=== PATIENT | female | born 1980 | race American Indian/Alaskan Native ===

== ENCOUNTER 2016-11-02 14:48 | Outpatient (CLI) | payer MEDICAID ==
--- NOTE | 2016-11-02 16:16 | Ultrasound Report ---
LEFT BREAST ULTRASOUND: 11/02/16 14:48:00 CLINICAL: 35-year-old and with a palpable left breast lump and several week history of clear and blood-tinged left nipple discharge. COMPARISON: None. FINDINGS: Ultrasound of the left breast(including all four quadrants and the retroareolar area) was performed. Normal fibroglandular structures are identified at 2:30 o'clock 9 cm from the nipple and correlate with the area of a palpable lump. This area of fibroglandular structures measures approximately 3 x 3.6 x 2.8 cm and stands out from the rest of the breast which is relatively fatty. No mass or shadowing is identified in this area where the patient describes a lump. However, marked retroareolar ductal ectasia is identified. Several ducts are dilated to at least 1 cm diameter in several ducts have thickened burns. A retroareolar heterogeneous solid intraductal mass is identified at 12 o'clock and measures approximately 1.6 x 0.8 x 0.8 cm. Color Doppler demonstrates heterogeneous blood flow within the mass. A second intraductal mass is identified in an adjacent duct and it measures 6 x 8 x 5 mm. A quick survey of the retroareolar ducts of the right breast revealed much smaller right retroareolar ducts and minimal right retroareolar duct ectasia. IMPRESSION: 1. Normal breast tissue at 2:30 o'clock 9 cm from the nipple where the patient feels a lump. 2. Marked left retroareolar duct ectasia with suspicious ductal wall thickening and two suspicious intraductal masses. Recommend vacuum-assisted ultrasound guided needle biopsy of the 2 dominant intraductal masses at 12 o'clock. BI-RADS 4--Suspicious I discussed the findings and the recommendation for left needle core breast biopsy with the patient at the time of the examination. I also suggested that she see a breast surgeon for consultation.
== END 2016-11-02 14:49 | disposition home or self-care (01) ==
LOC: SPVWC 14:48
PROVIDERS: ATTEND Obstetrics & Gynecology
DX: N60.42 Mammary duct ectasia of left breast (principal); N64.52 Nipple discharge; N63 Unspecified lump in breast

== ENCOUNTER 2016-11-14 13:50 | Outpatient (CLI) | payer MEDICAID ==
--- NOTE | 2016-11-14 15:17 | Ultrasound Report ---
VACUUM ASSISTED ULTRASOUND GUIDED NEEDLE CORE BIOPSY WITH CLIP PLACEMENT LEFT BREAST : 11/14/16 13:50:00 CLINICAL: Duct ectasia and intraductal masses. COMPARISON :11/02/16 FINDINGS: The procedure was explained to the patient and informed consent was obtained. Ultrasound demonstrated the previously described extensive duct ectasia with two adjacent intraductal subareolar masses at 12 o'clock. The skin was prepped with Betadine and anesthetized with 1% lidocaine. Vacuum-assisted needle core biopsy was performed through a small dermatotomy using ultrasound guidance, 2% lidocaine with epinephrine for deep anesthesia and a 13-gauge Mammotome Elite biopsy probe. Multiple cores were obtained and placed in formalin. The two masses (described in the prior report to be in adjacent ducts) were sampled on the same pass. A hydro-tu clip was deployed at the site of the larger lesion. Hemostasis was achieved with minimal pressure and a sterile dressing was applied. The patient tolerated the procedure well and there were no apparent complications. A post procedure mammogram was not performed. The patient left the department in good condition with instructions for wound care and follow up. IMPRESSION: Uncomplicated vacuum-assisted ultrasound guided core biopsy and clip placement left breast.
== END 2016-11-14 13:51 | disposition home or self-care (01) ==
LOC: SPVWC 13:50
PROVIDERS: ATTEND Obstetrics & Gynecology
DX: N60.42 Mammary duct ectasia of left breast (principal); N63 Unspecified lump in breast
CPT/HCPCS: 19083; A4648; 88305

== ENCOUNTER 2017-06-19 10:13 | Outpatient (CLI) | payer SELFPAY ==
--- NOTE | 2017-06-20 08:23 | Mammography Report ---
BILATERAL DIGITAL DIAGNOSTIC MAMMOGRAM with CAD: 06/19/17 10:13:00 CLINICAL: Left atypia on vacuum-assisted left breast biopsy 11/14/16. She was at the time and declined surgical excision. COMPARISON:None. This is a baseline mammogram. FINDINGS: The breasts are heterogeneously dense, which may obscure small masses. Extensive regional left upper outer highly suspicious amorphic calcifications. The calcifications span the distance of at least 15 cm. A left retroareolar biopsy clip corresponds to the vacuum-assisted biopsy that was performed for an ultrasound finding.Right asymmetries demonstrates satisfactory placement a spot magnification views. IMPRESSION: Highly suspicious extensive left regional breast calcifications. Recommend left stereotactic breast biopsy.Negative right breast. BI-RADS CATEGORY: 5 - - Highly Suggestive of Malignancy I discussed the findings and the recommendation for needle core biopsy with the patient at the time of the examination. ACR BI-RADS MAMMOGRAPHIC CODES: 0 = Needs additional imaging evaluation; 1 = Negative; 2 = Benign; 3 = Probably benign; 4 = Suspicious; 5 = Malignant; 6 = Known biopsy-proven malignancy COMMENT: 1. Dense breast tissue, i.e., adenosis, fibrocystic changes, etc., may obscure an underlying neoplasm. 2. Approximately 10% of cancers are not detected with mammography. 3. A negative mammography report should not delay biopsy if a clinically suspicious mass is present. COMMENT: Patient follow-up letters are generated by our [employer] application.
== END 2017-06-19 10:14 | disposition home or self-care (01) ==
LOC: SPVWC 10:13
PROVIDERS: ATTEND Surgery
DX: R92.1 Mammographic calcification found on diagnostic imaging of breast (principal)
CPT/HCPCS: 77066

== ENCOUNTER 2017-07-19 08:19 | Outpatient (CLI) | payer MEDICAID, OTHER | END 2017-07-19 08:20 | disposition home or self-care (01) | LOC: LABHHL 08:19 | PROVIDERS: ATTEND Surgery | DX: C77.9 Secondary and unspecified malignant neoplasm of lymph node, unspecified (principal) | CPT/HCPCS: 88305; 88341; 88342; 88361 ==

== ENCOUNTER 2017-08-09 08:31 | Outpatient (CLI) | payer MEDICAID ==
--- NOTE | 2017-08-09 10:55 | Mammography Report ---
LEFT DIGITAL DIAGNOSTIC MAMMOGRAM: 08/09/17 08:31:00 CLINICAL: For clip placement immediately status post stereotactic biopsy. 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 She also had an ultrasound vacuum assisted biopsy 11/14/16 with pathologic diagnosis of intraductal papilloma. COMPARISON:06/28/17 FINDINGS: A new retroareolar biopsy clip correlates with today's stereotactic biopsy and the clip is distant from the first stereotactic biopsy clip by 8 cm on the CC view and approximately 6 cm on the ML view.The most anterior retroareolar biopsy clip correlates with the ultrasound biopsy done on 11/14/16. IMPRESSION: Concordant clip placement status post stereotactic biopsy. BI-RADS CATEGORY: 6--Known cancer
--- NOTE | 2017-08-09 10:58 | Mammography Report ---
STEREOTACTIC VACUUM ASSISTED BIOPSY WITH CLIP PLACEMENT LEFT BREAST: 08/09/17 08:31:00 CLINICAL: Known DCIS of the left breast confirmed by stereotactic biopsy done on 06/28/17. This procedure is being done to confirm extent of disease. COMPARISON:06/28/17 mammogram FINDINGS: Consent for the procedure was obtained. A more anterior group of calcifications targeted with stereotactic guidance. The skin was prepped with Betadine and anesthetized with 1% lidocaine. 2% lidocaine with epinephrine was injected for deeper anesthesia. 8 gauge Mammotome biopsy was performed from a lateral approach through a small dermatotomy. Prefire and post-fire images demonstrated satisfactory positioning of the probe. Samples were obtained around the clock face. 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 A localizer clip was placed at the biopsy site and the placement was confirmed with a radiograph. The probe was removed and hemostasis was achieved with mild pressure. A sterile dressing was applied. The patient tolerated the procedure well and there were no apparent complications. Two view mammogram demonstrated concordant position of the biopsy clip.The second biopsy clip is 8 cm distant from the first stereotactic biopsy clip on the CC view and 6 cm distant from the first stereotactic biopsy clip on the ML view. IMPRESSION: Uncomplicated stereotactic biopsy with clip placement left breast.
== END 2017-08-09 08:32 | disposition home or self-care (01) ==
LOC: SPVWC 08:31
PROVIDERS: ATTEND Surgery
DX: D05.12 Intraductal carcinoma in situ of left breast (principal); R92.0 Mammographic microcalcification found on diagnostic imaging of breast
CPT/HCPCS: 19081; 77065; 88305; 88342; 88361; A4648

== ENCOUNTER 2017-08-10 13:14 | Outpatient (CLI) | payer MEDICAID ==
--- NOTE | 2017-08-10 15:08 | Ultrasound Report ---
ULTRASOUND GUIDED NEEDLE CORE BIOPSY OF A RIGHT AXILLARY LYMPH NODE WITH CLIP PLACEMENT : 08/10/17 13:14:00 CLINICAL: Left breast cancer and a suspicious right axillary lymph node. COMPARISON :None. FINDINGS: The procedure was explained to the patient and informed consent was obtained. Ultrasound demonstrated a single suspicious lymph node measuring 3.1 cm in length with a 5 mm thick cortex. The skin in the axilla was prepped with Betadine and anesthetized with 1% lidocaine. Ultrasound guided needle core biopsy of the lymph node was performed through a small dermatotomy using 2% lidocaine with epinephrine for deep anesthesia and a 18-gauge Achieve biopsy device. 3 samples were obtained and placed in formalin. A clip was deployed within the lymph node. Hemostasis was achieved with minimal pressure and a sterile dressing was applied. The patient tolerated the procedure well and there were no apparent complications. She was discharged in good condition and was given instructions for wound care and followup. IMPRESSION: Uncomplicated ultrasound-guided needle core biopsy of a right axillary lymph node with clip placement.
== END 2017-08-10 13:15 | disposition home or self-care (01) ==
LOC: SPVWC 13:14
PROVIDERS: ATTEND Surgery
DX: R59.1 Generalized enlarged lymph nodes (principal); C50.911 Malignant neoplasm of unspecified site of right female breast; Z79.899 Other long term (current) drug therapy
CPT/HCPCS: 38505; 88305; 88342

== ENCOUNTER 2017-08-16 10:09 | Day surgery (SDC) | payer MEDICAID ==
[2017-08-16] MEDS ORDERED: NACL BACTERIOSTATIC INFILTRATI ONE (11:50)
[2017-08-16] MEDS ORDERED: DEMEROL IV PRN (12:47)
[2017-08-16] MEDS ORDERED: ZOFRAN IV PRN (12:47)
[2017-08-16] MEDS ORDERED: DILAUDID IV PRN (12:47)
[2017-08-16] MEDS ORDERED: TORADOL IV PRN (12:47)
--- NOTE | 2017-08-16 12:47 | Anesthesia Consultation ---
Anesthesia Consult and Med Hx Date of service: 08/16/17 - Airway Anesthetic Teeth Evaluation: Good ROM Head & Neck: Adequate Mental/Hyoid Distance: Adequate Mallampati Class: Class I Intubation Access Assessment: Good - Pulmonary Exam CTA: Yes - Cardiac Exam Cardiac Exam: RRR - Pre-Operative Health Status ASA Pre-Surgery Classification: ASA3 Proposed Anesthetic Plan: General (GA with LMA ok, pt is morbidly obese ASA 3) - Central Nervous System Hx Psychiatric Problems: No - Hematic Hx Anemia: Yes Hx Sickle Cell Disease: Yes (trait) - Other Systems Hx Alcohol Use: Yes Hx Substance Use: No Hx Cancer: Yes
--- NOTE | 2017-08-16 12:47 | Anesthesia Day of Surgery ---
Anesthesia Day of Surgery - Day of Surgery Patient Examined: Yes Patient H&P Reviewed: Yes Patient is NPO: Yes
[2017-08-16] MEDS ORDERED: LACTATED RINGERS 1,000 ML IV SCH ×2 (13:00)
[2017-08-16] MEDS ORDERED: ANCEF/STERILE WATER 2 GM/20 ML IV NR (13:00)
[2017-08-16] MEDS ORDERED: VERSED IV NR (13:00)
[2017-08-16] MEDS ORDERED: DIPRIVAN 10 MG/ML IV ONE (16:27)
[2017-08-16] MEDS ORDERED: XYLOCAINE MPF 2% ONE (16:27)
[2017-08-16] MEDS ORDERED: DECADRON ONE (16:42)
[2017-08-16] MEDS ORDERED: ZOFRAN ONE (16:42)
[2017-08-16] MEDS ORDERED: HEPARIN 10,000 UNITS/10 ML ONE (16:44)
[2017-08-16] MEDS ORDERED: XYLOCAINE 1% 20 mL ONE (16:44)
[2017-08-16] MEDS ORDERED: MARCAINE 0.5% 30 ML INFILTRATI ONE (16:44)
[2017-08-16] MEDS ORDERED: NACL 0.9% 100 ML ONE (16:45)
[2017-08-16] MEDS ORDERED: NACL 0.9% 50 ML ONE (16:45)
[2017-08-16] MEDS ORDERED: DILAUDID ONE (16:46)
[2017-08-16] MEDS ORDERED: NACL 0.9% IV ONE (16:49)
[2017-08-16] MEDS ORDERED: XYLOCAINE 1% 20 mL INFILTRATI ONE (16:49)
[2017-08-16] MEDS ORDERED: MARCAINE 0.25% INFILTRATI ONE (16:49)
[2017-08-16] MEDS ORDERED: HEPARIN 10,000 UNITS/10 ML IV ONE (16:49)
[2017-08-16] MEDS ORDERED: NACL 0.9% 1000 ML 1,000 ML ONE (17:15)
--- NOTE | 2017-08-16 17:53 | Short Stay Summary ---
Short Stay Documentation Date of service: 08/16/17 - History Principal diagnosis: Left breast cancer H&P: obtained from office - Allergies and Medications Current Medications: Allergies No Known Allergies Allergy (Verified 08/14/17 11:41) Home Medications Medication Instructions Recorded Confirmed Last Taken Type Ascorbic Acid [Vitamin C] 500 mg PO DAILY 08/16/17 08/16/17 08/15/17 History Active Medications Hydromorphone HCl (Dilaudid) 0.5 mg IV Q10MIN PRN PRN Reason: Pain , Severe (7-10) Stop: 08/17/17 23:00 Lactated Ringer's (Lactated Ringers) 1,000 mls @ 100 mls/hr IV DIRECT SILVIA Ketorolac Tromethamine (Toradol) 30 mg IV ONCE PRN PRN Reason: Pain, Moderate (4-6) Meperidine HCl (Demerol) 25 mg IV ONCE PRN PRN Reason: Shivering Midazolam HCl (Versed) 2 mg IV PREOP NR Stop: 08/16/17 23:59 Last Admin: 08/16/17 12:41 Dose: 2 mg Ondansetron HCl (Zofran) 4 mg IV ONCE PRN PRN Reason: Nausea And Vomiting - Brief post op/procedure progress note Date of procedure: 08/16/17 Pre-op diagnosis: left breast cancer Post-op diagnosis: same Procedure: placement of right subclavian port a cath with ultrasound guidance Anesthesia: GETA, local Findings: good placement of port on post op CXR, no PTX Surgeon: IVET NICHOLAS Estimated blood loss: minimal Pathology: none Specimen disposition: to lab Condition: stable - Hospital course Hospital course: The patient was observed in the PACU and discharged to home in stable condition when criteria was met Short Stay Discharge Plan Activity: other (avoid heavy lifting with right arm) Diet: regular Wound: open to air, other (may shower tomorrow, pat incisions dry, do not scrub. Do not submerge incisions in hottubs/pools/baths until healed) Additional Instructions: Please call surgeon's office if you notice any swelling, redness, or drainage from the incision. Please follow up with Dr. Gu when scheduled. Call Dr. Nicholas' s office for a follow up appointment in 2 weeks if you do not have follow up scheduled with Dr. Rowell or Andrea in the next 2 weeks. Follow up with: VONNIE KEANE MD [Primary Care Provider] - 7 Days IVET NICHOLAS DO [Staff Physician] - 7 Days Prescriptions: Ibuprofen [Motrin 800 MG tab] 800 mg PO Q8HR PRN #30 tablet PRN Reason: Pain, Moderate (4-6)
--- NOTE | 2017-08-16 18:11 | Fluoroscopy Report ---
FINAL REPORT PROCEDURE: [place] CENTRAL VENOUS DEV PLCT TECHNIQUE: A portable AP chest radiograph was obtained at 08/16/2017 21:32 (GMT) . CPT 84108 HISTORY: Breast cancer. Insertion [id number]. COMPARISON: No prior studies are available for comparison. FINDINGS: Heart: The heart size is top normal. Mediastinum/Vessels: Normal. Lungs/Pleural space: Normal. Bony thorax: No acute osseous abnormality. Life support devices: Tip of Port-A-Cath at the cavoatrial junction/proximal right atrium. IMPRESSION: Tip of Port-A-Cath at the cavoatrial junction/proximal right atrium. No pneumothorax on limited portable exam. Heart size top-normal.
--- NOTE | 2017-08-16 20:53 | Post Anesthesia Evaluation ---
- Post Anesthesia Evaluation Patient Participated: Yes Airway Patent: Yes Stable Respiratory Function: Yes Nausea/Vomiting: No Temp > 96.8F: Yes Pain Manageable: Yes Adequeate Hydration: Yes Anesthesia Complications: No Block Receding Appropriately: Not Applicable Patient on Ventilator: No
[2017-08-16 23:08] VITALS: BP 113/67
--- NOTE | 2017-08-17 15:52 | Operative Report ---
Operative Report Operative Report: Date of procedure: 08/16/17 Pre-op diagnosis: left breast cancer Post-op diagnosis: same Procedure: placement of right subclavian port a cath with ultrasound guidance, fluoroscopy. Anesthesia: GETA, local Findings: good placement of port on post op CXR, no PTX Surgeon: IVET NICHOLAS Estimated blood loss: minimal Pathology: none Specimen disposition: to lab Condition: stable HPI and indication: 36 yo F with L metastatic ductal carcinoma who is followed by Dr. Rowell (breast surgery) and Dr. Mendez (oncology) as outpatient. The patient is a candidate for chemotherapy and was referred for port placement. She was consented for port placement using ultrasound guidance. All risks, benefits, and alternatives to surgery were discussed with her prior to consent and she understood. Procedure in detail: Procedure in detail: The patient was identified in the preoperative area, taken back to operating room, placed on operating table in supine position. After anesthesia was induced both arms were tucked and upper chest and neck were prepped and draped in usual sterile fashion. A timeout was performed. The was placed in Trendelenburg position. Local anesthetic was infiltrated into the skin at the intended puncture site. The right subclavian vein was visualized on ultrasound, and seen as compressible. This was accessed on the first stick. There was return of dark red, nonpulsatile blood. The wire was threaded under fluoroscopy without resistance and positioning confirmed. The needle was then removed. Using a 15 blade, an incision was made in the right upper chest and dissection carried down through the skin and subcutaneous tissue using Bovie electrocautery. Hemostasis was achieved along the way. A pocket for the port was then created bluntly and with electrocautery. The catheter was flushed and tunneled from the pocket to the wire. A breakaway catheter/dilator sheath then inserted over the wire under fluoroscopy, and the wire and dilator removed. The catheter was then inserted through the breakaway catheter which was then removed. The catheter sat flush under the skin. Using continuous fluoroscopy, the catheter was pulled back until the tip was visualized in the right atrium. The catheter was then cut to size and the port attached in the usual fashion. The port was then sutured into place to the pre-pectoral fascia using 2-0 Vicryl interrupted sutures. The wound was irrigated and hemostasis ensured. The port was tested with heparinized saline and there was return of blood and it flushed easily. The port was then instilled with 3000 units of heparin. The wound was again irrigated, and hemostasis ensured. The deep dermal layer was then closed with interrupted 3-0 Vicryl stitches. The skin incisions were closed with 4-0 Monocryl subcuticular stitches and skin glue. Intraoperative chest x-ray did show good positioning of the port, without evidence of pneumothorax. At the end of the case, all sponge, instrument, sharp counts were correct 2. The patient was awoken from anesthesia and taken to PACU in stable condition.
== END 2017-08-16 18:50 | disposition home or self-care (01) ==
LOC: OR 10:09
PROVIDERS: ATTEND Surgery
DX: C50.412 Malignant neoplasm of upper-outer quadrant of left female breast (principal); D57.3 Sickle-cell trait; Z98.890 Other specified postprocedural states
CPT/HCPCS: 36561; 76937; 77001; 81025; C1788; J0690; J1100; J1170; J1644; J2250; J2405; J2704; J7030; J7120

== ENCOUNTER 2017-08-17 13:37 | Outpatient (CLI) | payer MEDICAID ==
--- NOTE | 2017-08-19 10:57 | PET Report ---
PET SB TO MT INITIAL: HISTORY: Initial staging of left breast cancer. TECHNIQUE: 12.4 millicuries F-18 FDG was administered intravenously. Noncontrast CT images and PET images were obtained from the skull base to the proximal thighs. Fused images were reviewed on a workstation. The patient's blood glucose level measured 92. COMPARISON: No previous PET/CT. Correlation is made with the diagnostic mammogram performed 08/09/17. FINDINGS: BRAIN: physiologic FDG uptake in the imaged brain. NECK: physiologic FDG uptake. CHEST WALL: There is an approximate 4.4 x 2.3 cm masslike lesion in the lateral left breast with Max SUV measuring 3.2. This correlates with the left breast lesion when comparing to diagnostic mammogram. There is a second biopsy clip in the central portions of the left breast but no hypermetabolic mass is identified in this region. Max SUV in this area measures 2.1. There is normal uptake in the right breast. MEDIASTINUM: physiologic FDG uptake. LUNGS: physiologic FDG uptake. PLEURA/PERICARDIUM: physiologic FDG uptake. THORACIC LYMPH NODES: There are 2 mildly enlarged hypermetabolic lymph nodes in the left axilla measuring 2.3 cm and 1.8 cm in long axis. Max SUV of these 2 lymph nodes measures 6.7. HEPATOBILIARY: physiologic FDG uptake. Mean liver SUV measures . PANCREAS: physiologic FDG uptake. SPLEEN: physiologic FDG uptake. ADRENAL GLANDS: physiologic FDG uptake. KIDNEYS/RENAL COLLECTING SYSTEMS: physiologic FDG uptake. BOWEL/MESENTERY: physiologic FDG uptake. PELVIC VISCERA: physiologic FDG uptake. ABDOMINAL/PELVIC LYMPH NODES: physiologic FDG uptake. MUSCULOSKELETAL: physiologic FDG uptake. IMPRESSION: Left breast mass consistent with primary breast cancer and 2 mildly enlarged and hypermetabolic left axillary lymph nodes are identified consistent with metastatic disease. No evidence for pulmonary, hepatic or bony metastasis.
== END 2017-08-17 13:38 | disposition home or self-care (01) ==
LOC: PET 13:37
PROVIDERS: ATTEND Internal Medicine Hematology
DX: C50.919 Malignant neoplasm of unspecified site of unspecified female breast (principal)
CPT/HCPCS: 78815; 82962; A9552

== ENCOUNTER 2017-11-09 09:20 | Outpatient (CLI) | payer MEDICAID ==
--- NOTE | 2017-11-09 13:10 | PET Report ---
PET/CT:11/09/17 09:20:00 CLINICAL: Breast cancer restaging. RADIOPHARMACEUTICAL: 15.738mCi F18-FDG. COMPARISON: 08/17/17 PET/CT TECHNIQUE- Following intravenous injection of F-18 FDG and an approximately 60 minute uptake period, CT and PET images from the mid skull to the upper thighs were acquired with the patient in the fasted state. No contrast was administered. The CT protocol used for this PET CT study is designed for attenuation correction and anatomic localization of PET abnormalities. This drapery estimator CT is not desired to produce and cannot replace, [id number] diagnostic CT scans with specific imaging protocols for different body parts and indications. Plasma glucose at the time of this test: 112g/dl. The standardized uptake values (SUV) are normalized to patient body weight and indicate the highest activity concentration (SUV max) in a given disease site. FINDINGS: Brain--Physiologic FDG uptake in the visualized regions of the brain. Neck--Physiologic FDG uptake in mucosal structures. No mass or lymphadenopathy. Chest--Physiologic FDG uptake in mediastinal blood pool and myocardium. The previously described left breast mass and abnormal FDG uptake has resolved. Lungs--No abnormal uptake. No pulmonary nodule or mass. Pleura/pericardium--No abnormal uptake. Thoracic nodes--No abnormal uptake. The previously described FDG avid left axillary lymphadenopathy has resolved. A few small non-FDG avid left axillary lymph nodes. Hepatobiliary--No abnormal uptake. Liver background SUV mean, as a reference for comparing FDG studies, is 4.7 compared to 4.7 on the last exam. No liver mass. Spleen--No abnormal uptake. Pancreas--No abnormal uptake. Adrenal Glands--No abnormal uptake. Kidneys/Ureters/Bladder--No abnormal uptake. Abdominopelvic Nodes--No abnormal uptake. Bowel/Peritoneum/Mesentery--No abnormal uptake. Pelvic organs--No abnormal uptake. Bones/Soft Tissues--No abnormal uptake and no suspicious bone lesions. IMPRESSION-1. A positive response to therapy with resolution of the FDG avid left breast mass and FDG avid left axillary lymphadenopathy. 2. No evidence of pulmonary, hepatic, conrad or skeletal metastasis.
== END 2017-11-09 09:21 | disposition home or self-care (01) ==
LOC: PET 09:20
PROVIDERS: ATTEND Surgery
DX: C50.412 Malignant neoplasm of upper-outer quadrant of left female breast (principal); C50.812 Malignant neoplasm of overlapping sites of left female breast
CPT/HCPCS: 78815; 82962; A9552

== ENCOUNTER 2017-11-17 09:34 | Outpatient (CLI) | payer MEDICAID ==
--- NOTE | 2017-11-17 11:26 | Mammography Report ---
Left mammogram: Known cancer being treated with prior radiation and current chemotherapy. Recent negative PET scan. Patient has extensive microcalcifications involving the upper outer portion of left breast. There are 2 biopsy markers. There is no identifiable mass. A questionable nodular area identified in the lateral portion of the breast in the CC projection on prior examination on August 09, 2017 is no more identified but the remainder the breast pattern is generally unchanged. CAD used. Impression: Generally stable exam with resolution of a possible lateral nodule. Recommendation: Followup per your protocol. BI-RADS 6.
== END 2017-11-17 09:35 | disposition home or self-care (01) ==
LOC: SPVWC 09:34
PROVIDERS: ATTEND Surgery
DX: C50.412 Malignant neoplasm of upper-outer quadrant of left female breast (principal); C50.812 Malignant neoplasm of overlapping sites of left female breast

== ENCOUNTER 2017-12-13 08:10 | Observation (INO) | payer MEDICAID ==
--- NOTE | 2017-12-12 13:49 | Anesthesia Consultation ---
Anesthesia Consult and Med Hx Date of service: 12/12/17 - Airway Anesthetic Teeth Evaluation: Good ROM Head & Neck: Adequate Mental/Hyoid Distance: Adequate Mallampati Class: Class I Intubation Access Assessment: Probably Good - Pulmonary Exam CTA: Yes - Cardiac Exam Cardiac Exam: RRR - Pre-Operative Health Status ASA Pre-Surgery Classification: ASA2 Proposed Anesthetic Plan: General Nerve Block: PEC - Pulmonary Hx Smoking: No Hx Asthma: No Hx Respiratory Symptoms: No SOB: No COPD: No - Cardiovascular System Hx Hypertension: No Hx Heart Attack/AMI: No Hx Cardia Arrhythmia: No Hx Valvular Heart Disease: Yes (mild TR on 07/2017 TTE) - Central Nervous System Hx Seizures: No CVA: No - Gastrointestinal Hx Gastroesophageal Reflux Disease: No - Endocrine Hx Renal Disease: No Hx Liver Disease: No Hx Insulin Dependent Diabetes: No Hx Thyroid Disease: No - Hematic Hx Anemia: Yes (Hb 10; blood consent signed.) Hx Sickle Cell Disease: No (sickle cell trait only) - Other Systems Hx Cancer: Yes (breast) Hx Obesity: Yes - Additional Comments Anesthesia Medical History Comments: Had pre-chemo TTE in 07/2017 with EF 50-55% , mild TR. No hx anesthetic complications.
[~2017-12-13 08:10] MED LIST: LACTATED RINGERS 1,000 ML IV SCH; NEURONTIN PO NR; SUBLIMAZE IV SCH; VERSED IV NR
[2017-12-13] MEDS ORDERED: DECADRON ONE ×3 (09:16→16:44)
[2017-12-13] MEDS ORDERED: MARCAINE 0.25% INFILTRATI ONE (09:16)
[2017-12-13] MEDS ORDERED: METHYLENE BLUE ONE ×2 (10:02→13:30)
--- NOTE | 2017-12-13 10:08 | Anesthesia Day of Surgery ---
Anesthesia Day of Surgery - Day of Surgery Patient Examined: Yes Patient H&P Reviewed: Yes Patient is NPO: Yes
[2017-12-13] MEDS ORDERED: DIPRIVAN 10 MG/ML IV ONE (10:25)
[2017-12-13] MEDS ORDERED: SUBLIMAZE ONE (10:25)
[2017-12-13] MEDS ORDERED: XYLOCAINE MPF 2% ONE (10:27)
[2017-12-13] MEDS ORDERED: ZEMURON IV ONE ×2 (10:27→13:09)
[2017-12-13] MEDS ORDERED: DILAUDID IV PRN (10:30)
[2017-12-13] MEDS ORDERED: ANCEF/STERILE WATER 2 GM/20 ML IV NR (11:00)
[2017-12-13] MEDS ORDERED: NACL ONE (11:13)
[2017-12-13] MEDS ORDERED: BACITRACIN ONE (11:38)
[2017-12-13] MEDS ORDERED: GARAMYCIN ONE (11:38)
[2017-12-13] MEDS ORDERED: METHYLENE BLUE IV ONE (12:45)
[2017-12-13] MEDS ORDERED: METHYLENE BLUE IRRIGATION ONE (12:45)
[2017-12-13] MEDS ORDERED: NACL IRRIGATION ONE (12:45)
[2017-12-13] MEDS ORDERED: NACL 0.9% IR ONE (12:45)
[2017-12-13] MEDS ORDERED: GARAMYCIN IV ONE (12:45)
[2017-12-13] MEDS ORDERED: ANCEF IV ONE (12:45)
[2017-12-13] MEDS ORDERED: WATER FOR IRRIG STERILE IR ONE (12:45)
[2017-12-13] MEDS ORDERED: BACITRACIN IR ONE (12:45)
[2017-12-13] MEDS ORDERED: NACL 0.9% 1000 ML 1,000 ML ONE (13:30)
--- NOTE | 2017-12-13 16:24 | Mammography Report ---
SPECIMEN RADIOGRAPH LEFT BREAST: 12/13/17 08:10:00 CLINICAL: Total mastectomy specimen. FINDINGS: Three biopsy clips are identified within the specimen. Extensive malignant calcifications span approximately 14 cm in the lateral aspect of the breast.
[2017-12-13] MEDS ORDERED: BLOXIVERZ ONE (16:44)
[2017-12-13] MEDS ORDERED: ZOFRAN ONE (16:44)
[2017-12-13] MEDS ORDERED: ROBINUL ONE (16:44)
[2017-12-13] MEDS ORDERED: TORADOL ONE (16:44)
[2017-12-13] MEDS ORDERED: TYLENOL PO PRN (17:20)
[2017-12-13] MEDS ORDERED: SODIUM CHLORIDE FLUSH SYRINGE 10 ML IV PRN (17:20)
[2017-12-13] MEDS ORDERED: BENADRYL PO PRN (17:20)
[2017-12-13] MEDS ORDERED: ZOFRAN IV PRN (17:20)
--- NOTE | 2017-12-13 17:20 | Short Stay Summary ---
Short Stay Documentation Date of service: 12/13/17 - History H&P: obtained from office - Allergies and Medications Current Medications: Allergies No Known Allergies Allergy (Verified 12/06/17 17:17) Home Medications Medication Instructions Recorded Confirmed Last Taken Type HYDROcodone/APAP 5-325 [[place] 1 each PO Q6HR PRN #30 tablet 12/13/17 Unknown Rx 5/325] Active Medications Cefazolin Sodium (Ancef/Sterile Water 2 Gm/20 Ml) 2 gm IV PREOP NR Stop: 12/13/17 21:00 Celecoxib (Celebrex) 200 mg PO PREOP NR Stop: 12/13/17 23:59 Last Admin: 12/13/17 09:17 Dose: 200 mg Fentanyl (Sublimaze) 100 mcg IV ONCE SILVIA Stop: 12/13/17 23:48 Gabapentin (Neurontin) 300 mg PO PREOP NR Stop: 12/13/17 23:59 Last Admin: 12/13/17 09:16 Dose: 300 mg Lactated Ringer's (Lactated Ringers) 1,000 mls @ 100 mls/hr IV DIRECT SILVIA Last Admin: 12/13/17 09:16 Dose: 100 mls/hr Midazolam HCl (Versed) 2 mg IV PREOP NR Stop: 12/13/17 23:00 Last Admin: 12/13/17 09:18 Dose: 2 mg - Brief post op/procedure progress note Date of procedure: 12/13/17 Pre-op diagnosis: Left breast cancer of the upper outer quadrant Post-op diagnosis: same Procedure: Right total mastectomy, left total mastectomy with SLNB followed by ALND Anesthesia: GETA Findings: Left SLNB positive for malignancy and proceeded with ALND; radiograph specimen of both clips present Surgeon: KAREN HAYS Estimated blood loss: minimal Pathology: list (bilateral mastectomy; left SLNB, left ALND) Specimen disposition: to lab Condition: stable - Disposition Condition at discharge: Good Disposition: DC/TX-02 SHRT-TRM GEN HOSP IP Short Stay Discharge Plan Activity: other (no heavy lifting) Diet: regular Wound: other (keep incisions clean and dry; no showering or baths) Follow up with: VONNIE KEANE MD [Primary Care Provider] - 7 Days KAREN HAYS MD [Staff Physician] - 7 Days Prescriptions: HYDROcodone/APAP 5-325 [[place] 5/325] 1 each PO Q6HR PRN #30 tablet PRN Reason: Pain
--- NOTE | 2017-12-13 17:26 | Operative Report ---
Operative Report Operative Report: Date of Service: December 13, 2017 Preoperative diagnosis: Left breast cancer of the upper outer quadrant Postoperative diagnosis: Same Procedure: Left total mastectomy with sentinel lymph node biopsy followed by ALND and right total mastectomy Surgeon: Lakshmi Rowell M.D. Anesthesia: Gen. Findings: Left breast clips present within left total mastectomy. 1 sentinel lymph node identified and positive for malignancy on frozen section of pathology and proceeded with left axillary lymph node dissection Complications: None Drains: per plastic surgery Estimated blood loss: Minimal Disposition: PACU in good condition Indications for operative procedure: This is a 37-year-old lady with stage II left breast cancer of the upper outer quadrant, [id number] ER/UT positive. She completed neoadjuvant chemotherapy and recommendations were to proceed with left mastectomy given extensive microcalicifications with SLN staging. Patient underwent two left breast biopsies with findings only of DCIS and positive left axillary lymph node. She wised to proceed with a prophylactic right mastectomy and immediate bilateral tissue roll grinder placement. Genetic testing with on significant gene mutation. She wished to proceed with the above procedure. Procedure in detail: Anesthesia placed bilateral pectoral muscle block prior to going to the operating room. The patient was taken to the operating room and was placed supine. Gen. anesthesia was administered. The left nipple was injected with radioisotope and 1 cc of methylene blue. Bilateral chest and axillas were prepped and draped in the normal sterile operative fashion. Timeout was performed. Typical mastectomy incision markings were made. Attention was taken toward the right breast first. First began raising of the superior flap to the level of the clavicle superiorly and posteriorly to the pectoralis muscle. Followed by raising of the medial flap to the level of the sternum and posteriorly to the pectoralis muscle. Followed by raising of the lateral flap to the level of the latissimus dorsi muscle and taken down posteriorly. Followed by raising of the inferior flap to the level of the inframammary fold taken posterior to the pectoralis muscle. The mastectomy/ breast was removed from the pectoralis muscle without incident. The specimen was appropriately marked and sent to pathology. Hemostasis was obtained and plastic surgery then proceeded with tissue roll grinder placement. Attention was taken towards the left breast. A gamma probe was inserted into the axilla to identify the sentinel lymph node location with no uptake noted. A skin incision was made with a 10 blade knife and dissection taken down to the subcutaneous tissues. First began raising of the superior flap to the level of the clavicle superiorly and posteriorly to the pectoralis muscle. Followed by raising of the medial flap to the level of the sternum and posteriorly to the pectoralis muscle. Followed by raising of the lateral flap to the level of the latissimus dorsi muscle and taken down posteriorly. The gamma probe was inserted into the axilla, the axillary fascia was opened and sentinel lymph node was identified with the gamma probe that was dissected free and sent to pathology, SLN was previous biopsied axillary lymph node with malginancy. All remaining counts were less than 10% of the highest SLN. Lymph node was sent to pathology with findings positive for malignancy noted on frozen section. Then proceeded with raising of the inferior flap to the level of the inframammary fold taken posterior to the pectoralis muscle. The mastectomy/breast was removed from the pectoralis muscle without incident. The specimen was appropriately marked and sent to radiology with findings of breast clips present and sent to pathology. Attention was then taken towards the left axilla. First began opening of the axillary fascia further. The lattismus dorsi muscle was identified and followed superiorly. Then proceeded with identification of the axillary vein followed by identification of the thoracodorsal bundle and long thoracic nerve. Axillary lymph nodes were then removed from the above boundaries with the aid of the bovie cautery and sweeping-like motion and then sent to pathology. Axillary lymph nodes from level I and II were removed. Both nerves were identified and unharmed. Fibrotic and adherent tissue was noted around the long thoracic nerve and the tissue was not dissected free around the nerve given concerns of nerve injury, no bulky lymph nodes were noted to palpation of that tissue. One abnormal lymph node to palpation was noted that was properly removed during the dissection. Patient will receive adjuvant XRT. Hemostasis was noted. The chest wall was irrigated and suctioned. Hemostasis was obtained and plastic surgery then proceeded with tissue roll grinder placement. She tolerated surgery very well.
--- NOTE | 2017-12-13 17:47 | Post Operative Note ---
Pre-op diagnosis: left breast cancer Post-op diagnosis: same Findings: bilateral breast mastectomy defects Procedure: bilateral recon with expanders and mesh Anesthesia: GETA Surgeon: SILVESTRE MALAVE Estimated blood loss: 50-100ml Pathology: none Condition: stable Disposition: PACU
[2017-12-13] MEDS ORDERED: LACTATED RINGERS 1,000 ML IV SCH (18:00)
[2017-12-13] MEDS: DILAUDID IV PRN ×2 (18:13→18:33)
[2017-12-13] MEDS ORDERED: DILAUDID ONE ×2 (18:14→18:33)
--- NOTE | 2017-12-13 19:28 | XRay Report ---
FINAL REPORT EXAM: XR ELBOW 3+V RT HISTORY: painful lt elbow after Mastectomy TECHNIQUE: 3 views left elbow PRIORS: None. FINDINGS: No fracture identified. No dislocation seen. No evidence of joint effusion. Joint spaces are within normal limits. IMPRESSION: Negative elbow series
--- NOTE | 2017-12-13 21:09 | Post Anesthesia Evaluation ---
- Post Anesthesia Evaluation Patient Participated: Yes Airway Patent: Yes Stable Respiratory Function: Yes Nausea/Vomiting: No Temp > 96.8F: Yes Pain Manageable: Yes Adequeate Hydration: Yes Anesthesia Complications: No Other Comments: While in PACU, patient complained of pain in the right antecubital region with difficultly flexing the arm. Sensation intact; no swelling, skin changes, or obvious deformity of the arm noted. Intraop anesthesia and OR staff report that the right arm had moved off the arm board during the procedure but that this was recognized quickly and arm was resecured. Xray revealed no body injury or dislocation. After approx 1 hr in PACU, patient was able to flex/extend at the elbow and pain was improved. Surgical site pain well controlled with pre-op nerve block.
[2017-12-13] MEDS: COLACE PO SCH (22:05)
[2017-12-13] MEDS: MORPHINE IV PRN (22:08)
[2017-12-14] MEDS: REGLAN PO PRN ×2 (00:07→06:04)
--- NOTE | 2017-12-14 00:28 | Operative Report ---
PREOPERATIVE DIAGNOSIS: Left breast cancer. POSTOPERATIVE DIAGNOSIS: Left breast cancer. PROCEDURE: 1. Bilateral breast reconstruction using tissue cemetery vault installer in the prepectoral fashion, CPT CODE 69416-57. 2. Bilateral breast reconstruction using biological mesh, FlexHD CPT code 98450-66. 3. Bilateral breast reconstruction using adjacent tissue transfer. Total area of 300 square centimeters, CPT code 98756, 03880 x 8. 4. Application of DEBBI negative pressure wound VAC device to bilateral breasts for postoperative wound healing 95193-56. SURGEON: Johnny Maldonado MD NATIONAL ACCOUNT EXECUTIVE: None. ANESTHESIA: General. OPERATIVE INDICATIONS: This is a 37-year-old female with a history of left-sided breast cancer, was referred to me by Dr. Rowell for breast reconstruction. The patient was planning on undergoing bilateral mastectomies and discussion was held with the patient about multiple different options of immediate versus delayed and autologous versus implant based reconstruction. We decided implant based reconstruction as our initial plan with the ability to change that plan moving forward once we had obtained her final pathology and decision making on adjuvant therapies. Plan was for tissue cemetery vault installer reconstruction at this time. Risks and benefits of surgery were discussed with the patient. She agreed. OPERATIVE DETAILS: After informed consent was obtained, the patient was brought to the operating room and placed on the operating room table. Preoperative antibiotics and general anesthesia were administered. The patient was prepped and draped in a usual sterile fashion. Timeout was called verifying inpatient operation being performed and the site of the operation. Dr. Rowell began the case and her mastectomies will be dictated separately. I had marked the patient now actually for a Martin pattern mastectomy due to the fact that she had large breasts with significant amount of ptosis. This would provide for better concealment of her scar, better contouring of the breast and chest wall and also ability to potentially use some of her own autologous tissue coverage over the implant. I marked this out. Dr. Rowell performed mastectomy initially, first on the right side and then the left side. I came in and assessed the defects and began my work on the back table. After measuring, her base width, which was approximately 15 cm, I created a prepectoral composite implant on the back table for both sides. We did this by taking a tissue cemetery vault installer and wrapping it with a piece of acellular dermal matrix. This was done using a [place] [employer] cemetery vault installer and FlexHD. On the right side using [place] [employer] high profile smooth 750 mL cemetery vault installer with serial #[id number] and wrapped it with a piece of FlexHD 12 x 20 cm, serial #[id number]. The left side, same cemetery vault installer with serial #[id number] and same piece of FlexHD with serial #[id number]. The expanders were completely deflated of air and then instilled with 300 mL of saline. The FlexHD was then wrapped around the cemetery vault installer and spanning sutures were used posteriorly and secured it and then holes were made for the 5 suture tabs and the FlexHD tissue was also secured to the suture tabs to make a composite implant. This was then soaked in triple antibiotic irrigation with Betadine and once both implants were prepared, we then prepared for implantation. Prior to that, I assessed the defect on both sides and I had left marked out the inferior dermal flap, which Dr. Rowell allowed me to elevate and that was elevated down to the inframammary fold and then completely deepithelialized. I then made incisions laterally and medially in order to allow for rotation of this flap and advancement and adjacent tissue transfer of this to help with coverage of the implant and support of the implant as well. After it was deepithelialized, we started ____. The total area of 150 square centimeters on each side for a total of 300 sq.cm, adjacent tissue transfer. The right side we brought the composite implant and was sutured it to the chest wall using the suture tabs and 2-0 Vicryl sutures spanning sutures superiorly. I then advanced the dermal flap from inferior to superior and wrapped it around laterally as well and secured that to the chest wall and to the composite implant using 2-0 Vicryl sutures. This created additional coverage in the event of wound breakdown and also providing additional coverage to prevent future rippling of the implants and also recent port at the inframammary fold. Once this was done, hemostasis achieved. Everything was irrigated with triple antibiotic and Betadine. A 15 and 19-[place] William drain were placed in the prepectoral pocket and then we closed. Martin pattern was closed with a 2-0 Vicryl at the T junction and then 3-0 Monocryl deep dermals and a 2-0 Monocryl barbed suture in a subcuticular fashion to close the skin. A DEBBI negative pressure wound VAC device was applied over the incision and Dermabond over the areas that were exposed. Once the right breast was done, turned our attention to the left and the exact same procedure was performed with a composite implant and then adjacent tissue transfer and advancement of the dermal flap for additional support and coverage. Drains were placed and the incisions were closed in the exact same manner. The DEBBI negative pressure wound VAC device was applied to this side as well. Dr. Rowell did have to perform a full lymph node dissection on that left side and one of the drains was placed into that lymph node dissection pocket. The patient tolerated the procedure well, was awakened from general anesthesia, transferred to PACU in stable condition. ESTIMATED BLOOD LOSS: Less than 50 mL. COMPLICATIONS: None. SPECIMENS: See Dr. Rowell's dictation. Total fill volume for the cemetery vault installer is 300 mL. JOB# [id number] Srinivas/TIMBO
[2017-12-14] MEDS: MORPHINE IV PRN (06:10)
[2017-12-14] MEDS: COLACE PO SCH ×2 (09:55→21:30)
[2017-12-14] MEDS: PERCOCET 5/325 PO PRN ×3 (09:56→20:36)
--- NOTE | 2017-12-14 22:54 | Progress Note ---
Assessment and Plan This is a 37 year old lady with Stage II left breast cancer of the upper outer quadrant, POD#1 left MRM and right total mastectomy followed by immediate tissue bucket chucker placement. No acute events overnight. 1. Bilateral chest incisions healing well. 2. OOB to hallway. 3. Pain control. 4. NEELAM drain education. 5. D/C planning for tomorrow. Subjective Date of service: 12/14/17 Principal diagnosis: Left breast cancer of the upper outer quadrant Interval history: POD#1 right mastectomy and left MRM followed by immediate tissue bucket chucker placement Objective - Constitutional Vitals: Vital Signs - 12hr 12/14/17 12/14/17 12/14/17 11:19 13:26 15:30 Temperature 98.7 F Pulse Rate 77 Respiratory 18 20 Rate Blood Pressure 98/44 108/57 Blood Pressure [Left] O2 Sat by Pulse 100 Oximetry 12/14/17 12/14/17 12/14/17 15:50 16:04 19:30 Temperature 98.3 F 98.7 F Pulse Rate 95 H 85 Respiratory 18 16 Rate Blood Pressure 121/63 Blood Pressure 122/64 [Left] O2 Sat by Pulse 94 Oximetry General appearance: Present: no acute distress - EENT Eyes: PERRL, EOM intact ENT: hearing intact, clear oral mucosa, dentition normal Ears: bilateral: normal - Neck Neck: supple, normal ROM - Respiratory Respiratory effort: normal Respiratory: negative: CTA - Breasts Breasts: other (bilateral chest incisions with PICCO wound vac in place to suction; NEELAM drains to bulb suction; no hematoma) - Cardiovascular Rhythm: regular Extremities: no ischemia, pulses intact, pulses symmetrical, No edema, normal temperature, normal color, Full ROM - Gastrointestinal General gastrointestinal: Present: soft, non-tender, non-distended Rectal Exam: deferred - Genitourinary Female genitourinary: deferred - Integumentary Integumentary: clear, warm, dry - Neurologic Neurologic: CNII-XII intact, moves all extremities - Psychiatric Psychiatric: appropriate mood/affect, intact judgment & insight, memory intact, cooperative
[2017-12-15] MEDS: PERCOCET 5/325 PO PRN ×3 (02:57→14:18)
[2017-12-15] MEDS: COLACE PO SCH (10:00)
--- NOTE | 2017-12-15 10:08 | Progress Note ---
Assessment and Plan This is a 37 year old lady with Stage II left breast cancer of the upper outer quadrant, POD#2 left MRM and right total mastectomy followed by immediate tissue strip machine tender placement. No acute events overnight. 1. Bilateral chest incisions healing well. PICCO wound vac in place. 2. OOB to hallway. 3. Pain control. 4. NEELAM drain education. 5. D/C planning for today. Subjective Date of service: 12/15/17 Principal diagnosis: Left breast cancer of the upper outer quadrant Interval history: POD#2 right mastectomy and left MRM followed by immediate tissue strip machine tender placement Objective - Constitutional Vitals: Vital Signs - 12hr 18 1018 1018 00:00 01:50 04:00 Temperature 98.7 F 98.6 F Pulse Rate 87 78 78 Respiratory 16 18 Rate Blood Pressure 81/37 108/57 123/67 [Left] General appearance: Present: no acute distress - EENT Eyes: PERRL, EOM intact ENT: hearing intact, clear oral mucosa, dentition normal Ears: bilateral: normal - Neck Neck: supple, normal ROM - Respiratory Respiratory effort: normal - Breasts Breasts: other (bilateral incisions intact with PICCO wound vac in place; NEELAM drains to bulb suction) - Cardiovascular Rhythm: regular Extremities: no ischemia, pulses intact, pulses symmetrical, No edema, normal temperature, normal color, Full ROM - Gastrointestinal General gastrointestinal: Present: soft, non-tender, non-distended Rectal Exam: deferred - Genitourinary Female genitourinary: deferred - Integumentary Integumentary: clear, warm, dry - Musculoskeletal Musculoskeletal: strength equal bilaterally - Neurologic Neurologic: CNII-XII intact, moves all extremities - Psychiatric Psychiatric: appropriate mood/affect, intact judgment & insight, memory intact, cooperative
[2017-12-15 17:08] VITALS: BP 130/70
== END 2017-12-15 14:15 | disposition home or self-care (01) ==
LOC: OR 08:10 → OB 17:20
PROVIDERS: ADMIT Surgery; ATTEND Surgery
DX: D05.12 Intraductal carcinoma in situ of left breast (principal); N60.31 Fibrosclerosis of right breast
CPT/HCPCS: 19303; 19357; 38525; 38792; 73080; 76098; 78800; 81025; 88307; 88331; 88333; 88342; 93005; 93010; 96374; 96375; 96376; A9541; C1789; G0378; J0690; J1100; J1170; J1580; J1885; J2250; J2270; J2405; J2704; J2710; J3010; J7030; J7120; Q4128; Q9968; 88341

== ENCOUNTER 2018-05-16 06:11 | Day surgery (SDC) | payer MEDICAID, OTHER ==
[~2018-05-16 06:11] MED LIST changes: -NEURONTIN PO NR; -SUBLIMAZE IV SCH
[2018-05-16 07:32] LABS: Hematocrit 32.3 % (30.3-42.9); Hemoglobin 10.8 gm/dl (10.1-14.3)
[2018-05-16] MEDS ORDERED: DIPRIVAN 10 MG/ML IV ONE (07:42)
[2018-05-16] MEDS ORDERED: SUBLIMAZE ONE (07:43)
[2018-05-16] MEDS ORDERED: ANCEF/STERILE WATER 2 GM/20 ML IV NR (08:00)
--- NOTE | 2018-05-16 08:32 | Anesthesia Consultation ---
Anesthesia Consult and Med Hx Date of service: 05/16/18 - Airway Anesthetic Teeth Evaluation: Good ROM Head & Neck: Adequate Mental/Hyoid Distance: Adequate Mallampati Class: Class III Intubation Access Assessment: Possibly Difficult (previous easy intubation 11/2017) - Pulmonary Exam CTA: Yes - Cardiac Exam Cardiac Exam: RRR - Pre-Operative Health Status ASA Pre-Surgery Classification: ASA2 Proposed Anesthetic Plan: General - Pulmonary Hx Smoking: No Hx Asthma: No Hx Respiratory Symptoms: No - Cardiovascular System Hx Hypertension: No Hx Heart Attack/AMI: No Hx Percutaneous Transluminal Coronary Angioplasty (PTCA): No Hx Cardia Arrhythmia: No Hx Valvular Heart Disease: Yes (mild TR on 07/2017 TTE) - Central Nervous System Hx Seizures: No CVA: No Hx Psychiatric Problems: No - Gastrointestinal Hx Gastroesophageal Reflux Disease: No - Endocrine Hx Renal Disease: No Hx Liver Disease: No Hx Insulin Dependent Diabetes: No Hx Non-Insulin Dependent Diabetes: No Hx Thyroid Disease: No - Hematic Hx Anemia: Yes - Other Systems Hx Cancer: Yes (hx breast ca s/p resection, chemo (last dose fall 2017), and radiation) Hx Obesity: Yes - Additional Comments Anesthesia Medical History Comments: No hx anesthetic complications.
--- NOTE | 2018-05-16 08:32 | Anesthesia Day of Surgery ---
Anesthesia Day of Surgery - Day of Surgery Patient Examined: Yes Patient H&P Reviewed: Yes Patient is NPO: Yes
[2018-05-16] MEDS ORDERED: MARCAINE 0.25% INFILTRATI ONE ×2 (08:38→08:47)
[2018-05-16] MEDS ORDERED: XYLOCAINE 1% 20 mL ONE (08:38)
[2018-05-16] MEDS ORDERED: CLORPACTIN WCS-90 IR ONE ×2 (08:39→08:58)
[2018-05-16] MEDS ORDERED: XYLOCAINE 1% 20 mL INFILTRATI ONE (08:47)
[2018-05-16] MEDS ORDERED: NACL 0.9% IR ONE (08:58)
[2018-05-16] MEDS ORDERED: DECADRON ONE (09:00)
[2018-05-16] MEDS ORDERED: TORADOL ONE (09:00)
[2018-05-16] MEDS ORDERED: ZOFRAN ONE (09:00)
--- NOTE | 2018-05-16 09:20 | Short Stay Summary ---
Short Stay Documentation Date of service: 05/16/18 - History H&P: obtained from office - Allergies and Medications Current Medications: Allergies No Known Allergies Allergy (Verified 05/15/18 14:37) Home Medications Medication Instructions Recorded Confirmed Last Taken Type Clindamycin HCl 300 mg PO TID 05/15/18 05/16/18 05/15/18 15:00 History Ergocalciferol [Vitamin D2] 1 cap PO Q2W 05/15/18 05/16/18 05/11/18 09:00 Hist ory traMADol [Ultram 50 MG tab] 50 mg PO Q6H PRN 05/15/18 05/16/18 05/15/18 19:00 History HYDROcodone/APAP 5-325 [[place] 1 each PO Q6HR PRN #25 tablet 05/16/18 Unknown Rx 5/325] Active Medications Cefazolin Sodium (Ancef/Sterile Water 2 Gm/20 Ml) 2 gm IV PREOP NR Stop: 05/16/18 13:00 Hydromorphone HCl (Dilaudid) 0.5 mg IV Q10MIN PRN PRN Reason: Pain , Severe (7-10) Stop: 05/16/18 20:00 Lactated Ringer's (Lactated Ringers) 1,000 mls @ 100 mls/hr IV DIRECT SILVIA Last Admin: 05/16/18 07:00 Dose: 100 mls/hr Documented by: Midazolam HCl (Versed) 2 mg IV PREOP NR Stop: 05/16/18 23:59 Last Admin: 05/16/18 07:32 Dose: 2 mg Documented by: - Brief post op/procedure progress note Date of procedure: 05/16/18 Pre-op diagnosis: Left axillary abscess Post-op diagnosis: same Procedure: Left axillary abscess incision and drainage Anesthesia: GETA Findings: Left axilla abscess of 6x2 cm Surgeon: KAREN HAYS Estimated blood loss: minimal Pathology: list (left axilla abscess contents) Specimen disposition: to lab Condition: stable - Disposition Condition at discharge: Good Disposition: DC-01 TO HOME OR SELFCARE Short Stay Discharge Plan Activity: other (no heavy lifting) Diet: regular Wound: keep clean and dry, other Follow up with: VONNIE KEANE MD [Primary Care Provider] - 7 Days KAREN HAYS MD [Staff Physician] - 05/17/18 3:15 pm Prescriptions: HYDROcodone/APAP 5-325 [[place] 5/325] 1 each PO Q6HR PRN #25 tablet PRN Reason: Pain
[2018-05-16] MEDS: DILAUDID IV PRN ×4 (09:25→09:45)
--- NOTE | 2018-05-16 09:31 | Operative Report ---
Operative Report Operative Report: May 16, 2018 Preoperative diagnosis: Left axillary abscess Postoperative diagnosis: Same Procedure: Left axillary abscess incision and drainage Surgeon: Lakshmi Rowell M.D. Anesthesia: Gen. Findings: Left axilla abscess of 6 x 2 cm with incision and drainage performed cultures taken Complications: None Blood loss: Minimal Disposition: PACU Indications for operative procedure: This is a 37-year-old lady with a personal history of advanced stage left breast cancer of the upper outer quadrant status post bilateral mastectomy with axillary lymph node dissection. Patient recently completed adjuvant radiation therapy to the left chest wall last month. She reports a three-week history of left axillary swelling and was recently admitted to outside hospital with minimal aspirate obtained by radiology and she was discharged home on antibiotics after 4 days. Patient was seen in the office on Monday with findings of a probable infected left axillary abscess probably secondary to hidradenitis. Patient with known history of hidradenitis. Significant inflamed tissues around the left axilla was noted as well. Recommendations were for incision and drainage. Patient wished to proceed with the above procedure under general anesthesia due to pain. Procedure in detail: The patient was taken to the operating room and was laid supine. Gen. anesthesia was administered. The left axilla abscess was noted of 6 x 2 cm. Typical radiation changes were noted as well with surrounding inflam ed tissue of the left axilla as well. The left axilla was prepped and draped in the normal sterile operative fashion. Ultrasound was used. The area of concern was noted with area of 6 x 2 cm of a complex fluid collection. The area of incision was anesthetized with 1% lidocaine mixed with quarter percent Marcaine. Incision was made at the anterior surface of abscess with a 15 blade knife. Abscess site was opened further with the aid of hemostats. Cultures were taken. Area was debrieded. Abscess contents were removed. Abscess was probable for an infected sebaceous cyst. Area was appropriately incised and drained under ultrasound with significant improvement. It was then packed and dressed with Tegaderm. I'll see patient back tomorrow in the office for packing removal. She tolerated surgery very well and was awaken from anesthesia without any complications and transferred to PACU in good condition.
[2018-05-16 11:44] VITALS: BP 121/75
--- NOTE | 2018-05-16 12:58 | Post Anesthesia Evaluation ---
- Post Anesthesia Evaluation Patient Participated: Yes Airway Patent: Yes Stable Respiratory Function: Yes Nausea/Vomiting: No Temp > 96.8F: Yes Pain Manageable: Yes Adequeate Hydration: Yes Anesthesia Complications: No
== END 2018-05-16 11:30 | disposition home or self-care (01) ==
LOC: OR 06:11
PROVIDERS: ATTEND Surgery
DX: L02.412 Cutaneous abscess of left axilla (principal); M79.89 Other specified soft tissue disorders; Z85.3 Personal history of malignant neoplasm of breast; Z90.13 Acquired absence of bilateral breasts and nipples; Z98.891 History of uterine scar from previous surgery; Z86.2 Personal history of diseases of the blood and blood-forming organs and certain disorders involving the immune mechanism; Z98.890 Other specified postprocedural states; Z79.899 Other long term (current) drug therapy
CPT/HCPCS: 10060; 36415; 81025; 85014; 85018; 87075; 87116; 88304; J0690; J1100; J1170; J1885; J2250; J2405; J2704; J3010; J7120

== ENCOUNTER 2020-11-12 11:45 | Outpatient (CLI) | payer MEDICAID ==
--- NOTE | 2020-11-12 14:58 | PET Report ---
PET sb to mt subsequent INDICATION / CLINICAL INFORMATION: Restaging breast cancer. TRACER: F-18 FDG 13.34 mCi IV injection 11/12/2020. Blood glucose is 83 mg/dL. TECHNIQUE: Following injection of the above tracer and appropriate delay, PET imaging was performed from the [facility] ll base to the upper thighs. CT imaging was performed same time for the purposes of anatomic localiza tion. All CT examinations at this institution utilize dose reduction: Automated exposure control. COMPARISON: None available. FINDINGS: HEAD/NECK: Metabolically active sclerotic lesion right humeral head with maximal SUV of 3.9. CHEST: Bony metastatic disease involving a right rib, T10 and T12. Uptake at T12 is 10.7 SUV. Patchy opacity is seen at the left upper chest peripherally and superior segment of the left lower lobe medially wi th maximal SUV of 5.6. ABDOMEN/PELVIS: Multifocal hepatic metastatic disease. A practice representative lesion lateral to the gallbladder measures ap proximately 1.6 cm. Maximal SUV is 8.2. Multifocal metastatic disease involves the lumbar spine and b doug pelvis. Maximal SUV at the posterior left iliac bone is 8.7. UPPER LEGS: No abnormal uptake. INCIDENTAL CT FINDINGS: Extensive sclerotic bony metastatic disease is present. IMPRESSION: 1. Development of bony and hepatic metastatic disease. 2. Pulmonary uptake may be inflammatory. Signer Name: Mars Juares MD Signed: 11/12/2020 2:54 PM Workstation Name: [id number]
== END 2020-11-12 11:46 | disposition home or self-care (01) ==
LOC: PET 11:45
PROVIDERS: ATTEND Internal Medicine Hematology
DX: C50.919 Malignant neoplasm of unspecified site of unspecified female breast (principal); D50.8 Other iron deficiency anemias
CPT/HCPCS: 78815; 82962; A9552